=== PATIENT | female | born 1990 | race Caucasian/White ===

== ENCOUNTER 2018-04-05 08:54 | Emergency (ER) | payer MEDICAID ==
--- NOTE | 2018-04-05 09:17 | EDPHY ---
H & P Time Seen by Provider: 04/05/18 09:08 HPI/ROS: CHIEF COMPLAINT: Right thumb injury HISTORY OF PRESENT ILLNESS: 28-year-old [id number] female via private vehicle complaining of acute right crush injury of the right thumb distal phalanx caught in a car door earlier this morning. She has gel nail senegalese in place. PHYSICAL EXAM (Prior to examination, patient consented to physical exam, hands were washed and my usual and customary physical exam procedures followed) 1) GENERAL: Well-developed, well-nourished, alert and oriented. Appears uncomfortable 2) HEAD: Normocephalic 3) HEENT: Pupils equal, round, reactive to light bilaterally. 4) LUNGS: Breathing comfortably. 5) MUSCULOSKELETAL: Thumb is tender to palpation distal phalanx. I am unable to visualize the complete nail bed secondary to the patient's gel success coach nail [place]. Proximally there approximately 1-2 mm visualized which appear to have a subungual hematoma. No felon. No evidence of infection. 6) SKIN: Intact. No laceration. 7) VASCULAR: pulses and cap refill present are brisk 8) NEUROLOGIC: Radial, ulnar, median nerve function intact with no deficits appreciated on exam DIFFERENTIAL DIAGNOSIS: in no particular order including but not limited to fracture, sprain, compartment syndrome Procedure: Splint A thumb spica splint was applied by ER meter/relay technician. After application of the splint I returned and re-examined the patient. The splint was adequately immobilizing the joint and distal to the splint the patient's circulation and sensation were intact. Patient shows no signs of compartment syndrome. Was given orthopedic precautions. Procedure: Nail trephination. Indication: Suspected Subungual hematoma. Anesthesia: 1% plain lidocaine digital nerve block Verbal consent was obtained from the patient to drain a subungual hematoma. Because the patient's gel type of nail senegalese this was unable to be removed in the ER. The patient was prepped in the usual fashion. The subungual hematoma was drained with 18 gauge needle drilling fashion.. The subungual hematoma was drained successfully and there were no complications. The procedure was performed by myself. Smoking Status: Heavy smoker Constitutional: Initial Vital Signs Temperature (C) 36.7 C 04/05/18 08:58 Heart Rate 111 H 04/05/18 08:58 Respiratory Rate 18 04/05/18 08:58 Blood Pressure 106/80 04/05/18 08:58 O2 Sat (%) 97 04/05/18 08:58 O2 Delivery Mode Room Air Allergies/Adverse Reactions: No Known Allergies Allergy (Unverified 04/05/18 09:00) Home Medications: Medication Instructions Recorded NK [No Known Home Meds] 04/05/18 MDM/Departure - MDM Imaging Results: Imaging Impressions Finger X-Ray 04/05/18 09:11 Impression: No fracture of the right thumb. Images reviewed myself - Depart Disposition: Home, Routine, Self-Care Clinical Impression: Crush injury to thumb Qualifiers: Encounter type: initial encounter Laterality: right Qualified Code(s): S67.01XA - Crushing injury of right thumb, initial encounter Subungual hematoma of finger Qualifiers: Encounter type: initial encounter Qualified Code(s): S60.10XA - Contusion of unspecified finger with damage to nail, initial encounter Condition: Good Instructions: Subungual Hematoma (ED), Crush Injury (ED) Additional Instructions: Return to the ER if you develop redness, swelling, discharge, warmth to the wound, red streaks going up your arm, or any other symptoms that concern you.
[2018-04-05 10:35] VITALS: BP 125/85
== END 2018-04-05 10:35 | disposition home or self-care (01) ==
LOC: SUPCPDRO 08:54
PROC: 0H9QXZZ Drainage of Finger Nail, External Approach (ICD-10-PCS; principal; 2018-04-05)
DX: S60.111A Contusion of right thumb with damage to nail, initial encounter (principal); W23.1XXA Caught, crushed, jammed, or pinched between stationary objects, initial encounter
CPT/HCPCS: L3807